=== PATIENT | male | born 1985 | race Hispanic/Latino ===

== ENCOUNTER 2017-08-10 21:28 | Emergency (ER) | payer BC ==
[2017-08-10] MEDS ORDERED: Sulfameth/Trimethoprim DS 800-160mg TAB ONE (21:49)
== END 2017-08-10 21:53 | disposition home or self-care (01) ==
LOC: BURERS 21:28
DX: L72.3 Sebaceous cyst (principal); F17.210 Nicotine dependence, cigarettes, uncomplicated
CPT/HCPCS: 99283